=== PATIENT | male | born 1975 | race Two or more races ===

== ENCOUNTER 2018-02-07 23:05 | Emergency (ER) | payer MEDICAID ==
[~2018-02-07] VITALS: Ht 175.3 cm; Wt 101.6 kg
[~2018-02-07 23:05] MED LIST: ATOR20TA50 PO; HYDR-3682 PO; METF-370 PO; METO-169 PO; PANT1INJ3 PO; PIOG15TA46 PO; QUET100T38 PO; VENL75CA78 PO
[2018-02-07] MEDS ORDERED: ACETAMINOPHEN 500 MG TAB PO ONE ×2 (23:35→23:45)
[2018-02-08 00:37] LABS: Basophils # (auto) 0.1 uL; Basophils % (auto) 0.7 % (0.0-2.0); Eosinophils # (auto) 0 uL; Eosinophils % (auto) 0.3 % (0.0-7.0); Hematocrit 42.7 % (41.0-53.0); Hemoglobin 13.8 g/dL (13.5-17.5); Lymphocytes # (auto) 1.6 uL; Lymphocytes % (auto) 10.6 % (10.0-50.0); Mean Corpuscular Hemoglobin 29.8 pg (28.0-32.0); Mean Corpuscular Hgb Conc. 32.3 g/dL (32.0-36.0); Mean Corpuscular Volume 92.3 fL (80.0-100.0); Monocytes # (auto) 1.8 uL; Monocytes % (auto) 11.6 % (0.0-12.0); Neutrophils # (auto) 11.6 uL; Neutrophils % (auto) 76.8 % (37.0-80.0); Platelet Count (auto) 312 10^3/uL (140-450); Red Blood Cells 4.62 10^6/uL (4.5-5.90); Red Cell Distribution Width 14.4 % (11.8-14.3); White Blood Cell 15.1 10^3/uL (4.4-10.8)
[2018-02-08 00:55] LABS: Albumin 3.7 g/dL (3.4-5.0); BUN/Creatinine Ratio 10.5; Potassium 3.7 mmol/L (3.5-5.1)
[2018-02-08 00:58] LABS: Bilirubin, Total 0.3 mg/dL (0.2-1.0); Total Protein 8.4 g/dL (6.4-8.2)
[2018-02-08] MEDS ORDERED: SODIUM CHLORIDE 0.9% 1,000 ML IV ONE ×2 (05:00→07:45)
[2018-02-08] MEDS ORDERED: ONDANSETRON HCL 4 MG/2 ML VIAL IV ONE (05:00)
[2018-02-08] MEDS ORDERED: PROMETHAZINE HCL 25 MG/ML 1ML ONE (05:01)
[2018-02-08] MEDS ORDERED: PROMETHAZINE HCL 25 MG/ML 1ML IV ONE (05:15)
[2018-02-08] MEDS ORDERED: KETOROLAC TROMETH 30 MG/ML 1ML VIAL IV ONE ×2 (07:45→08:00)
[2018-02-08] MEDS ORDERED: cefTRIAXone 1GM/10ml IVPUSH 10 ML IV ONE (08:00)
[2018-02-08 08:16] LABS: Urine Bacteria FEW /hpf (None Seen); Urine Blood TRACE /uL (Negative); Urine Mucus MODERATE (None Seen); Urine Specific Gravity 1.026 (1.001-1.035); Urine WBC 17 /hpf (0 - 3)
[2018-02-08 10:30] VITALS: BP 111/80
== END 2018-02-08 11:09 | disposition home or self-care (01) ==
LOC: ER 23:05
DX: N20.0 Calculus of kidney (principal); R19.7 Diarrhea, unspecified; E11.9 Type 2 diabetes mellitus without complications; I10 Essential (primary) hypertension; J45.909 Unspecified asthma, uncomplicated; Z87.442 Personal history of urinary calculi
CPT/HCPCS: 36415; 74176; 80053; 81001; 85025; 96361; 96374; 96375; 99285; J1885; J2550; J7030